=== PATIENT | male | born 1980 | race Caucasian/White ===

== ENCOUNTER 2024-07-06 17:16 | Emergency (ER) | payer BC ==
[2024-07-06 17:24] VITALS: BP 163/100; PULSE 71; RESP 20; TEMP 97.9; BMI 28.0
[2024-07-06] MEDS ORDERED: DIPHTH,PERTUSS(ACELL),TET 0.5 ML DISP.SYRIN IM ONE (18:26)
[2024-07-06] MEDS: TETANUS AND DIPHTHERIA TOXOID 0.5 ML DISP.SYRIN IM ONE (18:30)
[2024-07-06] MEDS: IBUPROFEN 400 MG TABLET (FP) PO PRN (18:30)
== END 2024-07-06 21:53 | disposition home or self-care (01) ==
LOC: JER 17:16 → JERFT 17:16
PROC: 3E0234Z Introduction of Serum, Toxoid and Vaccine into Muscle, Percutaneous Approach (ICD-10-PCS; principal; 2024-07-06)
DX: S52.501A Unspecified fracture of the lower end of right radius, initial encounter for closed fracture (principal); W18.39XA Other fall on same level, initial encounter; Z23 Encounter for immunization
CPT/HCPCS: 73110-TC-RT-FY; 73130-TC-RT-FY; 99283-25

== ENCOUNTER 2024-07-10 06:06 | Day surgery (SDC) | payer BC ==
[2024-07-08 14:36] VITALS: BMI 28.0
[2024-07-10] MEDS ORDERED: ACETAMINOPHEN INJECTION 100 ML ONE (07:12)
[2024-07-10] MEDS ORDERED: DEXAMETHASONE SOD PHOSPHATE 10 MG/1 ML VIAL ONE (07:12)
[2024-07-10] MEDS ORDERED: MIDAZOLAM HCL 2 MG/2 ML SINGLE DOSE VIAL ONE (07:12)
[2024-07-10] MEDS ORDERED: BUPIVACAINE HCL/PF 0.5% (5 MG/ML) 30 ML VIAL IJ ONE (07:12)
[2024-07-10] MEDS ORDERED: FENTANYL CITRATE/PF 50 MCG/ML VIAL ONE (07:24)
[2024-07-10] MEDS ORDERED: BUPIVACAINE HCL/PF 0.5% (5MG/ML) 10 ML VIAL ONE (07:26)
[2024-07-10] MEDS ORDERED: PROPOFOL 20 ML ONE ×3 (07:45→08:43)
[2024-07-10] MEDS ORDERED: DEXAMETHASONE SOD PHOSPHATE 4 MG/1 ML VIAL ONE (08:07)
[2024-07-10] MEDS ORDERED: KETOROLAC TROMETHAMINE 30 MG/1 ML VIAL ONE (08:07)
[2024-07-10] MEDS ORDERED: ONDANSETRON 4 MG/2 ML VIAL ONE (08:07)
[2024-07-10] MEDS ORDERED: ONDANSETRON 4 MG/2 ML VIAL IVPUSH PRN (09:47)
[2024-07-10] MEDS ORDERED: LACTATED RINGERS SOLUTION 1,000 ML IV SCH (10:00)
[2024-07-10 10:07] VITALS: RESP 16
[2024-07-10 10:32] VITALS: PULSE 78; TEMP 97.8
[2024-07-10 10:59] VITALS: BP 138/78
== END 2024-07-10 10:59 | disposition home or self-care (01) ==
LOC: FASU 06:06
PROVIDERS: ATTEND Orthopaedic Surgery Sports Medicine
PROC: 0PSH04Z Reposition Right Radius with Internal Fixation Device, Open Approach (ICD-10-PCS; principal; 2024-07-10 08:03)
DX: S52.571A Other intraarticular fracture of lower end of right radius, initial encounter for closed fracture (principal); X58.XXXA Exposure to other specified factors, initial encounter; Y92.9 Unspecified place or not applicable; Y93.9 Activity, unspecified
CPT/HCPCS: 25609; C1713; 73110-TC-RT-FY; 73130-TC-RT-FY; 94760; J0131; J1100

== ENCOUNTER 2024-10-14 07:49 | Inpatient (IN) | payer BC ==
[2024-10-14] MEDS: ALBUTEROL SO4 2.5/IPRATROPIUM 0.5 INH SOL 3 ML VIAL.NEB. NEB SCH ×4 (08:00→18:06)
[2024-10-14] MEDS ORDERED: DEXAMETHASONE SOD PHOSPHATE 10 MG/1 ML VIAL ONE (08:23)
[2024-10-14] MEDS: DEXAMETHASONE LIQUID 0.5 MG/5 ML PO ONE (08:27)
[2024-10-14] MEDS: DEXAMETHASONE SOD PHOSPHATE 10 MG/1 ML VIAL PO ONE (08:28)
[2024-10-14] MEDS ORDERED: MAGNESIUM SULFATE IN WATER 2 GM/50 ML IVPB IVPB ONE (08:39)
[2024-10-14] MEDS ORDERED: ALBUTEROL SO4 0.083% IH SOL 2.5 MG/3 ML VIAL.NEB. NEB ONE ×2 (08:43→11:17)
[2024-10-14] MEDS: MAGNESIUM SULF 50% (8.12 MEQ/2 ML-1 GM VIAL) IVPB ONE (08:46)
[2024-10-14] MEDS: ALBUTEROL SO4 0.083% IH SOL 2.5 MG/3 ML VIAL.NEB. NEB ONE ×2 (08:47→11:45)
[2024-10-14 09:33] LABS: BASO % 0.7 % (0-2.0); EOS % 7.1 % (0-4.5); HEMOGLOBIN 14.5 GM/dL (11.7-16.9); LYMPH % 16.5 % (8-40); MCH 29.9 pg (25.7-33.7); MCHC 32.8 g/dl (32.0-35.9); MEAN PLT VOLUME 8.3 fl (7.5-11.1); MONO % 5.4 % (3.8-10.2); NEUT % 70.3 % (42.8-82.8); PLATELET COUNT 209 10^3/uL (134-434); RBC 4.84 M/mm3 (4.00-5.60); RDW 13.6 % (11.9-15.9); WHITE BLOOD COUNT 9.1 K/mm3 (4.0-10.0)
[2024-10-14 09:58] LABS: POTASSIUM 3.3 mmol/L (3.5-5.1)
[2024-10-14 10:00] LABS: ALBUMIN 3.5 g/dl (3.4-5.0); BLOOD UREA NITROGEN 14.7 mg/dL (7-18); CALCIUM 8.6 mg/dL (8.5-10.1)
[2024-10-14 10:05] LABS: BILIRUBIN,TOTAL 0.3 mg/dL (0.2-1); TOT PROT 7.1 g/dl (6.4-8.2)
[2024-10-14] MEDS ORDERED: POTASSIUM CHLORIDE ORAL LIQUID 20 MEQ/15 ML ONE (12:43)
[2024-10-14] MEDS: POTASSIUM CHLORIDE ORAL LIQUID 20 MEQ/15 ML PO ONE (12:49)
[2024-10-14] MEDS ORDERED: ALBUTEROL SO4 2.5/IPRATROPIUM 0.5 INH SOL 3 ML VIAL.NEB. NEB ONE ×6 (13:34→17:52)
[2024-10-14] MEDS: ALBUTEROL SO4 2.5/IPRATROPIUM 0.5 INH SOL 3 ML VIAL.NEB. NEB PRN (13:36)
[2024-10-14 15:00] LABS: VENOUS BASE EXCESS -5.2 mmol/L (-2-2); VENOUS O2 SATURATION 95.9 % (70-80)
[2024-10-14 15:05] LABS: VENOUS PCO2 72.9 mmHg (38-52); VENOUS PH 7.162 (7.310-7.410)
[2024-10-14 17:54] LABS: VENOUS BASE EXCESS -5.7 mmol/L (-2-2); VENOUS O2 SATURATION 79.9 % (70-80); VENOUS PCO2 67.3 mmHg (38-52)
[2024-10-14] MEDS ORDERED: EPINEPHrine/PF 1 MG/1 ML (1:1,000) AMPULE ONE (17:55)
[2024-10-14 18:02] LABS: VENOUS PH 7.178 (7.310-7.410)
[2024-10-14] MEDS: EPINEPHrine/PF 1 MG/1 ML (1:1,000) AMPULE IM ONE (18:06)
[2024-10-14] MEDS ORDERED: ALBUTEROL SO4 0.083% IH SOL 2.5 MG/3 ML VIAL.NEB. NEB PRN (18:29)
[2024-10-14 18:30] LABS: ALLENS TEST POSITIVE
[2024-10-14 18:31] LABS: ARTERIAL BLOOD GAS pH 7.138 (7.350-7.450)
[2024-10-14] MEDS: EPINEPHrine 1:1,000 0.3 MG/0.3 ML SYR IM ONE (18:35)
[2024-10-14 19:13] LABS: ALLENS TEST POSITIVE; ARTERIAL BLOOD GAS BASE EXCESS -4.3 mmol/L (-2-2); ARTERIAL BLOOD GAS PO2 134.4 mmHg (80-100); ARTERIAL BLOOD GAS pH 7.201 (7.350-7.450)
[2024-10-14 21:09] LABS: ARTERIAL BLD GAS O2 SATURATION 97.5 % (95-98); ARTERIAL BLOOD GAS BASE EXCESS -3.4 mmol/L (-2-2); ARTERIAL BLOOD GAS PO2 114.5 mmHg (80-100); ARTERIAL BLOOD GAS pH 7.252 (7.350-7.450)
[2024-10-14 21:10] LABS: ALLENS TEST POSITIVE
[2024-10-14 21:12] LABS: VENT MODE ST; VENT RATE 14
[2024-10-14] MEDS: MUPIROCIN 2% TOPICAL OINTMENT FOR DECOLONIZATION NS SCH ×2 (21:24→21:49)
[2024-10-14] MEDS: CHLORHEXIDINE GLUCONATE 4% CLEANSER FOR DECOLONIZATION TP SCH ×2 (21:24→21:49)
[2024-10-14 21:28] LABS: BASO % 0.2 % (0-2.0); EOS % 0.4 % (0-4.5); HEMATOCRIT 46.7 % (35.4-49); HEMOGLOBIN 15.3 GM/dL (11.7-16.9); LYMPH % 2.5 % (8-40); MCH 29.9 pg (25.7-33.7); MCHC 32.8 g/dl (32.0-35.9); MEAN PLT VOLUME 7.8 fl (7.5-11.1); NEUT % 92.9 % (42.8-82.8); PLATELET COUNT 270 10^3/uL (134-434); RBC 5.13 M/mm3 (4.00-5.60); RDW 13.6 % (11.9-15.9); WHITE BLOOD COUNT 15.9 K/mm3 (4.0-10.0)
[2024-10-14] MEDS: DEXMEDETOMIDINE PREMIX 400 MCG/100 ML BAG IVPB SCH (21:47)
[2024-10-14 21:51] LABS: ALBUMIN 4.1 g/dl (3.4-5.0); ANISOCYTOSIS 1+; CALCIUM 9.1 mg/dL (8.5-10.1); MACROCYTOSIS 0
[2024-10-14 21:52] LABS: MAGNESIUM 2.1 mg/dL (1.8-2.4)
[2024-10-14 21:55] LABS: CREATININE 1.1 mg/dL (0.55-1.3); PHOSPHOROUS 3.2 mg/dL (2.5-4.9)
[2024-10-14 21:56] LABS: BILIRUBIN,TOTAL 0.4 mg/dL (0.2-1); POTASSIUM 5.7 mmol/L (3.5-5.1); TOT PROT 8.4 g/dl (6.4-8.2)
[2024-10-14] MEDS: DEXTROSE 50%-WATER 25 GM/50 ML DISP.SYRIN IVPUSH ONE (22:19)
[2024-10-14] MEDS: INSULIN REGULAR HUMAN 100 UNITS/ML *VIAL IVPUSH ONE (22:19)
[2024-10-14] MEDS: DEXMEDETOMIDINE IN 0.9 % NACL 400 MCG/100 ML BAG IVPB SCH (22:37)
[2024-10-14] MEDS ORDERED: IPRATROPIUM BR 0.02% 0.5 MG/2.5 ML VIAL.NEB. NEB SCH (22:45)
[2024-10-14] MEDS: methylPREDNISolone NA SUCC 125 MG/2 ML VIAL IVPUSH SCH (22:59)
[2024-10-14] MEDS: MAGNESIUM SULFATE IN WATER 2 GM/50 ML IVPB IVPB ONE (23:00)
[2024-10-15] MEDS: IPRATROPIUM BR 0.02% 0.5 MG/2.5 ML VIAL.NEB. NEB SCH (00:31)
[2024-10-15] MEDS: LEVALBUTEROL HCL 0.63 MG/3 ML VIAL.NEB. IH SCH (00:32)
[2024-10-15 06:47] LABS: ARTERIAL BLD GAS O2 SATURATION 99.2 % (95-98); ARTERIAL BLOOD GAS BASE EXCESS -1.4 mmol/L (-2-2); ARTERIAL BLOOD GAS PO2 187.7 mmHg (80-100); ARTERIAL BLOOD GAS pH 7.339 (7.350-7.450); VENT MODE S/T
[2024-10-15 06:48] LABS: VENT RATE 14
[2024-10-15 07:19] LABS: HEMATOCRIT 44.2 % (35.4-49); HEMOGLOBIN 15.2 GM/dL (11.7-16.9); MCH 30.5 pg (25.7-33.7); MCHC 34.3 g/dl (32.0-35.9); MEAN CELL VOLUME 89.1 fl (80-96); PLATELET COUNT 242 10^3/uL (134-434); RBC 4.96 M/mm3 (4.00-5.60); RDW 13.7 % (11.9-15.9); WHITE BLOOD COUNT 14.7 K/mm3 (4.0-10.0)
[2024-10-15 07:43] LABS: CHLORIDE 101 mmol/L (98-107); SODIUM 134 mmol/L (136-145)
[2024-10-15 07:44] LABS: POTASSIUM 6.9 mmol/L (3.5-5.1)
[2024-10-15 07:53] LABS: ALBUMIN 4.2 g/dl (3.4-5.0); BLOOD UREA NITROGEN 25.1 mg/dL (7-18); CALCIUM 9.2 mg/dL (8.5-10.1)
[2024-10-15 07:54] LABS: ANION GAP 3 mmol/L (4-13); CO2 29 mmol/L (21-32); GLUCOSE,RANDOM 150 mg/dL (74-106); MAGNESIUM 2.8 mg/dL (1.8-2.4)
[2024-10-15 07:56] LABS: CREATININE 1.1 mg/dL (0.55-1.3); PHOSPHOROUS 2.7 mg/dL (2.5-4.9); SGOT/AST 35 U/L (15-37); SGPT/ALT 36 U/L (13-61)
[2024-10-15 07:57] LABS: BILIRUBIN,TOTAL 0.3 mg/dL (0.2-1)
[2024-10-15 07:58] LABS: ALK PHOS 56 U/L (45-117)
[2024-10-15] MEDS ORDERED: LEVALBUTEROL HCL 0.63 MG/3 ML VIAL.NEB. IH SCH (08:00)
[2024-10-15] MEDS: CALCIUM GLUCONATE 10% - 1,000 MG/10 ML VIAL IVPUSH ONE (08:02)
[2024-10-15] MEDS: DEXTROSE 50%-WATER 25 GM/50 ML DISP.SYRIN IVPUSH ONE ×2 (08:03→13:38)
[2024-10-15] MEDS: INSULIN REGULAR HUMAN 100 UNITS/ML *VIAL IVPUSH ONE ×2 (08:03→13:38)
[2024-10-15] MEDS: SODIUM CHLORIDE 1,000 ML IV STA (09:35)
[2024-10-15] MEDS: ENOXAPARIN NA (PORCINE) 40 MG/0.4 ML DISP.SYRIN SQ SCH (09:35)
[2024-10-15] MEDS ORDERED: ENOXAPARIN NA (PORCINE) 40 MG/0.4 ML DISP.SYRIN SQ SCH (10:00)
[2024-10-15] MEDS ORDERED: methylPREDNISolone NA SUCC 40 MG/1 ML VIAL IVPUSH SCH ×2 (10:00)
[2024-10-15] MEDS: ALBUTEROL SO4 2.5/IPRATROPIUM 0.5 INH SOL 3 ML VIAL.NEB. NEB SCH ×2 (10:38→15:53)
[2024-10-15 10:45] LABS: ANISOCYTOSIS 0; HELMET CELLS 0; HOWELL-JOLLY BODIES 0; MACROCYTOSIS 0; OVALOCYTE 0; ROULEAU 0; SICKELED CELLS 0; TARGET CELLS 0; TEAR DROP CELLS 0; TOXIC GRANULATION 0
[2024-10-15] MEDS: methylPREDNISolone NA SUCC 40 MG/1 ML VIAL IVPUSH SCH (10:45)
[2024-10-15 12:50] LABS: CHLORIDE 105 mmol/L (98-107); SODIUM 135 mmol/L (136-145)
[2024-10-15 12:51] LABS: CALCIUM 8.8 mg/dL (8.5-10.1)
[2024-10-15 12:52] LABS: ANION GAP 3 mmol/L (4-13); BLOOD UREA NITROGEN 27.8 mg/dL (7-18); CO2 27 mmol/L (21-32); GLUCOSE,RANDOM 151 mg/dL (74-106); MAGNESIUM 2.8 mg/dL (1.8-2.4); POTASSIUM 6.5 mmol/L (3.5-5.1)
[2024-10-15] MEDS: CALCIUM GLUCONATE 10% - 1,000 MG/10 ML VIAL IVPB ONE (13:38)
[2024-10-15] MEDS: SODIUM CHLORIDE 0.45% 1,000 ML IV SCH (13:48)
[2024-10-15] MEDS: SODIUM BICARBONATE 8.4% 50 MEQ/50 ML DISP.SYRIN IVPUSH ONE (13:48)
[2024-10-15] MEDS: SODIUM CHLORIDE 0.45% 1,000 ML IV ONE (13:48)
[2024-10-15 14:18] VITALS: BMI 29.8
[2024-10-15 15:32] LABS: ARTERIAL BLD GAS O2 SATURATION 99.6 % (95-98); ARTERIAL BLOOD GAS BASE EXCESS -0.1 mmol/L (-2-2); ARTERIAL BLOOD GAS PO2 287.7 mmHg (80-100)
[2024-10-15 15:37] LABS: ALLENS TEST POSITIVE
[2024-10-15 15:38] LABS: VENT MODE S/T; VENT RATE 14
[2024-10-15] MEDS ORDERED: ALBUTEROL SO4 2.5/IPRATROPIUM 0.5 INH SOL 3 ML VIAL.NEB. NEB ONE (15:48)
[2024-10-15 16:22] LABS: POTASSIUM 4.9 mmol/L (3.5-5.1)
[2024-10-15 16:23] LABS: CALCIUM 9.1 mg/dL (8.5-10.1)
[2024-10-15 16:24] LABS: BLOOD UREA NITROGEN 26.9 mg/dL (7-18); MAGNESIUM 2.8 mg/dL (1.8-2.4)
[2024-10-16 06:15] LABS: ARTERIAL BLD GAS O2 SATURATION 96.9 % (95-98); ARTERIAL BLOOD GAS BASE EXCESS -1.1 mmol/L (-2-2); ARTERIAL BLOOD GAS pH 7.346 (7.350-7.450)
[2024-10-16 06:16] LABS: ALLENS TEST POSITIVE
[2024-10-16 06:17] LABS: VENT MODE ST; VENT RATE 14
[2024-10-16 08:15] LABS: HEMATOCRIT 40.7 % (35.4-49); HEMOGLOBIN 13.3 GM/dL (11.7-16.9); MCH 30.1 pg (25.7-33.7); MCHC 32.6 g/dl (32.0-35.9); MEAN CELL VOLUME 92.2 fl (80-96); MEAN PLT VOLUME 8.7 fl (7.5-11.1); PLATELET COUNT 187 10^3/uL (134-434); RBC 4.42 M/mm3 (4.00-5.60); RDW 13.5 % (11.9-15.9); WHITE BLOOD COUNT 14.9 K/mm3 (4.0-10.0)
[2024-10-16 08:23] LABS: POTASSIUM 4.9 mmol/L (3.5-5.1)
[2024-10-16 08:27] LABS: BLOOD UREA NITROGEN 25.8 mg/dL (7-18); MAGNESIUM 2.8 mg/dL (1.8-2.4)
[2024-10-16 08:28] LABS: ALBUMIN 3.2 g/dl (3.4-5.0)
[2024-10-16 08:30] LABS: CREATININE 0.9 mg/dL (0.55-1.3)
[2024-10-16 08:32] LABS: BILIRUBIN,TOTAL 0.2 mg/dL (0.2-1); TOT PROT 6.6 g/dl (6.4-8.2)
[2024-10-17 06:24] LABS: HEMATOCRIT 41.2 % (35.4-49); HEMOGLOBIN 13.5 GM/dL (11.7-16.9); MCH 29.9 pg (25.7-33.7); MCHC 32.9 g/dl (32.0-35.9); MEAN CELL VOLUME 90.8 fl (80-96); MEAN PLT VOLUME 8.7 fl (7.5-11.1); PLATELET COUNT 207 10^3/uL (134-434); RBC 4.53 M/mm3 (4.00-5.60); RDW 13.5 % (11.9-15.9); WHITE BLOOD COUNT 14.4 K/mm3 (4.0-10.0)
[2024-10-17 07:02] LABS: POTASSIUM 4.4 mmol/L (3.5-5.1)
[2024-10-17 07:06] LABS: ALBUMIN 3.2 g/dl (3.4-5.0); BLOOD UREA NITROGEN 25.1 mg/dL (7-18); CALCIUM 8.9 mg/dL (8.5-10.1)
[2024-10-17 07:09] LABS: CREATININE 0.9 mg/dL (0.55-1.3)
[2024-10-17 07:11] LABS: BILIRUBIN,TOTAL 0.3 mg/dL (0.2-1); TOT PROT 6.5 g/dl (6.4-8.2)
[2024-10-17] MEDS ORDERED: ALBUTEROL SO4 HFA INHALER IH PRN ×2 (08:03→20:44)
[2024-10-17] MEDS: methylPREDNISolone NA SUCC 40 MG/1 ML VIAL IVPUSH SCH (18:37)
[2024-10-17] MEDS: SODIUM CHLORIDE 0.45% 1,000 ML IV SCH (19:25)
[2024-10-17] MEDS ORDERED: CHLORHEXIDINE GLUCONATE 4% CLEANSER FOR DECOLONIZATION TP SCH (22:00)
[2024-10-17] MEDS ORDERED: MUPIROCIN 2% TOPICAL OINTMENT FOR DECOLONIZATION NS SCH (22:00)
[2024-10-18] MEDS: methylPREDNISolone NA SUCC 40 MG/1 ML VIAL IVPUSH SCH (02:59)
[2024-10-18] MEDS: ALBUTEROL SO4 2.5/IPRATROPIUM 0.5 INH SOL 3 ML VIAL.NEB. NEB SCH (08:00)
[2024-10-18] MEDS: ENOXAPARIN NA (PORCINE) 40 MG/0.4 ML DISP.SYRIN SQ SCH (09:43)
[2024-10-18] MEDS: BUDESONIDE/FORMETEROL FUMARATE 160/4.5 mcg INHALER IH SCH (13:06)
[2024-10-18] MEDS: MONTELUKAST NA 10 MG TABLET PO SCH (22:13)
[2024-10-19] MEDS: methylPREDNISolone NA SUCC 40 MG/1 ML VIAL IVPUSH SCH (10:14)
[2024-10-19 13:13] VITALS: BP 132/69; PULSE 65; RESP 18; TEMP 97.6
== END 2024-10-19 15:53 | disposition home or self-care (01) | DRG 133 ==
LOC: JER 07:49 → JERBED 11:31 → JICU 20:18 → J6S 10-17 20:10
PROVIDERS: ADMIT Internal Medicine; ATTEND Student in an Organized Health Care Education/Training Program
DX: J96.02 Acute respiratory failure with hypercapnia (principal); J45.902 Unspecified asthma with status asthmaticus; E87.5 Hyperkalemia; B34.8 Other viral infections of unspecified site; J96.01 Acute respiratory failure with hypoxia
CPT/HCPCS: 0241U-QW; 36415; 36600; 71045-TC-FY; 80048; 80053; 82803; 83735; 84100; 85025; 85027; 87481; 87633; 93005; 93010; 94010; 94150; 94640; 94660; 99291; J1100

== ENCOUNTER 2025-04-30 06:39 | Day surgery (SDC) | payer BC ==
[2025-04-23 11:44] VITALS: BMI 28.8
[2025-04-30] MEDS ORDERED: LIDOCAINE HCL/PF 2% SDV 5ML VIAL ONE (07:47)
[2025-04-30] MEDS ORDERED: PROPOFOL 40 ML ONE (07:47)
[2025-04-30] MEDS ORDERED: MIDAZOLAM HCL 2 MG/2 ML SINGLE DOSE VIAL ONE (07:47)
[2025-04-30] MEDS ORDERED: BACITRACIN ZINC 15 GM TUBE TOPICAL OINTMENT ONE (07:48)
[2025-04-30] MEDS ORDERED: LIDOCAINE 1%/EPI 1:100000 (20 ML MULTI DOSE VIAL) ONE (07:48)
[2025-04-30] MEDS ORDERED: ROCURONIUM BROMIDE 50 MG/5 ML SYRINGE ONE (07:53)
[2025-04-30] MEDS ORDERED: SUCCINYLCHOLINE CHLORIDE 200 MG/10 ML SYRINGE ONE (07:53)
[2025-04-30] MEDS ORDERED: DEXAMETHASONE SOD PHOSPHATE 4 MG/1 ML VIAL ONE (07:54)
[2025-04-30] MEDS ORDERED: ALBUTEROL SO4 HFA INHALER IH ONE (07:54)
[2025-04-30] MEDS ORDERED: ADENOSINE 6 MG/2 ML VIAL IVPUSH ONE (08:28)
[2025-04-30] MEDS ORDERED: LABETALOL HCL 20 MG/4 ML VIAL ONE (08:34)
[2025-04-30] MEDS ORDERED: ONDANSETRON 4 MG/2 ML VIAL ONE (08:54)
[2025-04-30] MEDS: LIDOCAINE 1%/EPI 1:100000 (20 ML MULTI DOSE VIAL) IJ ONE ×4 (09:20→10:20)
[2025-04-30] MEDS ORDERED: PROPOFOL 20 ML ONE (10:14)
[2025-04-30] MEDS ORDERED: SUGAMMADEX SODIUM 200 MG/2 ML VIAL ONE (10:27)
[2025-04-30] MEDS ORDERED: ONDANSETRON 4 MG/2 ML VIAL IVPUSH PRN (11:02)
[2025-04-30] MEDS: LACTATED RINGERS SOLUTION 1,000 ML IV SCH (11:07)
[2025-04-30] MEDS: ACETAMINOPHEN 1000 MG/100 ML BAG IVPB ONE (11:07)
[2025-04-30] MEDS ORDERED: ALBUTEROL SO4 0.083% IH SOL 2.5 MG/3 ML VIAL.NEB. NEB ONE (11:15)
[2025-04-30] MEDS: ALBUTEROL SO4 0.083% IH SOL 2.5 MG/3 ML VIAL.NEB. NEB ONE (11:58)
[2025-04-30 13:13] VITALS: RESP 16
[2025-04-30 14:29] VITALS: BP 117/66; PULSE 55; TEMP 97.6
== END 2025-04-30 14:57 | disposition home or self-care (01) ==
LOC: JASU-SURG 06:39
PROVIDERS: ATTEND Otolaryngology
PROC: 09TU8ZZ Resection of Right Ethmoid Sinus, Via Natural or Artificial Opening Endoscopic (ICD-10-PCS; 2025-04-30)
PROC: 8E09XBZ Computer Assisted Procedure of Head and Neck Region (ICD-10-PCS; 2025-04-30)
PROC: 09BL7ZZ Excision of Nasal Turbinate, Via Natural or Artificial Opening (ICD-10-PCS; 2025-04-30)
PROC: 09TV8ZZ Resection of Left Ethmoid Sinus, Via Natural or Artificial Opening Endoscopic (ICD-10-PCS; principal; 2025-04-30 08:00)
DX: J32.4 Chronic pansinusitis (principal); J34.3 Hypertrophy of nasal turbinates; J33.9 Nasal polyp, unspecified
CPT/HCPCS: 88304-TC; 88305-TC; 94640; 94760